=== PATIENT | female | born 1990 | race Caucasian/White ===

== ENCOUNTER 2018-04-05 07:35 | Inpatient (IN) | payer MEDICAID, SELFPAY ==
[2018-04-05 07:39] VITALS: BMI 29.7
--- NOTE | 2018-04-05 08:09 | PCM.HP.OB ---
- Problem List (1) Oligohydramnios Status: Acute Qualifiers: Fetus number: single or unspecified fetus Trimester: third trimester Qualified Code(s): O41.03X0 - Oligohydramnios, third trimester, not applicable or unspecified History Date of Admission: 04/05/18 Final GORDO: 03/31/18 Final GORDO Source: US <20 weeks Gestational age: 40 Weeks and 5 Days History of this : This is a 27 year-old, , at 40 weeks gestational age. History significant for prior heroin use and incarceration. Was on Subutex prior but has not taken for 3-4 years per pt. Has been clean since 12/2015. History also significant for tobacco use in the , anemia, situational depression (while incarcerated), and HSV. Has been taking iron supplement. States her last HSV outbreak was 6 weeks ago. Allergies No Known Allergies Allergy (Verified 12/15/16 00:37) Home Medications: Home Medications Buspirone HCl [Buspar] 10 mg PO TID 12/15/16 Fluoxetine HCl [Fluoxetine HCl] 10 mg PO BID 12/15/16 Smoking Status: Current every day smoker Alcohol: None History Past Pregnancies: Past Pregnancies Delivery Date Name GA/Weeks Outcome Route Weight Gender Labor Length Anesthesia Delivery Location Provider FOB Term 9lb4oz Term 8lb Expected Infant Delivery Method: Spontaneous Vaginal Review of Systems Constitutional: Denies: Fever HEENT: Denies: Head Aches Cardiovascular: Denies: Chest Pain Respiratory: Denies: Shortness of Breath Gastrointestinal: Denies: Abdominal Pain Gynecological: Reports: - - +Ctx's. No VB, LOF. Good FM Physical Exam General: Alert, Oriented x3 HEENT: Atraumatic Lungs: Normal air movement Abdomen: Soft, Non Tender Neurological: Neuro grossly intact Estimated gestational size: Appropriate for gestational size Presentation: Cephalic Cervix Dilation (cm): 2 Assessment/Plan All Active Problems Oligohydramnios (Acute) This is a 27 year-old, at 40 weeks gestational age. Admitted for IOL for oligo. She had an US 1 day ago showing ANTHONY 2cm. NST 1 day ago was reactive and reassuring. - Will plan for osorio and pitocin induction - GBS negative - Epidural for pain control - HSV: Has been taking Acyclovir. Pt denies prodromal symptoms. Will assess for lesions before placing osorio - Hx of heroin use: Has not used since 12/2015. Urine tox in neg. Will get urine tox on admission today
[2018-04-05] MEDS: Lactated Ringers 1,000 ML 50 ML IV ×2 (08:33→11:15)
[2018-04-05 08:46] LABS: Hematocrit 33.5 % (37-47); Mean Corp Hgb Conc 32.8 g/gl (32-36); Mean Corpuscular Hgb 28.6 pg (27.0-32.0); Mean Platelet Vol. 11.3 fl (6.2-12.0); Platelet Count 182 K/mm3 (150-450); RBC Distribution Width CV 20.3 % (11.6-14.6); RBC Distribution Width SD 63.5 fl (35.1-43.9); Red Blood Count 3.85 M/mm3 (4.2-5.4); White Blood Count 9.1 K/mm3 (4.4-11.0)
[2018-04-05] MEDS: Oxytocin 30 units/NS 500 ml 30 UNITS/500 ML IV.SOLN IV (08:48)
[2018-04-05 08:49] LABS: Scan Indicated on CBC? Y/N YES- FLAGS NOTED
[2018-04-05] MEDS: 0.9% Normal Saline 100 ML IV.SOLN. INTRA-UTER (09:01)
[2018-04-05] MEDS: 0.9% Normal Saline 250 ML IV.SOLN. 100 ML IV (09:01)
--- NOTE | 2018-04-05 09:05 | PCM.PN.BLA ---
Progress Note No external HSV lesions noted. Intracervical osorio placed in usual fashion and filled with 40 cc. Cvx 2/50/-2, vertex. Pit started and to hold at [address] is in [address].
[2018-04-05 09:06] LABS: Differential Comment SCANNED
[2018-04-05 09:10] LABS: Amphetamine Urine VISTA NEGATIVE (<1000 ng/mL); Barbiturate Urine VISTA NEGATIVE (< 200 ng/mL); Benzodiazepine Urine VISTA NEGATIVE (< 200 ng/mL); Cocaine Urine VISTA NEGATIVE (< 300 ng/mL); Ecstacy Urine VISTA NEGATIVE (< 500 ng/mL); Methadone Urine VISTA NEGATIVE (< 300 ng/mL); PCP Urine VISTA NEGATIVE (< 25 ng/mL); THC Urine VISTA NEGATIVE (< 50 ng/mL); Vista UDS pH Range 6
[2018-04-05] MEDS: fentaNYL-bupivacaine (epidural) 100 ML BAG EPIDURAL (11:07)
--- NOTE | 2018-04-05 13:23 | PCM.PN.BLA ---
Progress Note pt resting comfortable with epidural in place. VE- 5-6/70/-2 AROM performed clear fluid. Continue pitocin at 6mu. anticipate
[2018-04-05] MEDS: Oxytocin 30 units/NS 500 ml 30 UNITS/500 ML IV.SOLN 334 UNITS IV (14:14)
--- NOTE | 2018-04-05 14:26 | PCM.OB.VAG ---
Vaginal Delivery Maternal Presentation: Medically Indicated Induction - oligohydramnios Method of Induction: Pitocin, Garcia Bulb, Amniotomy Medical Reason for Induction: - - oligohydramnios Amniotic Membrane Rupture Type: Artificial Amniotic Fluid Description: Clear Final GORDO: 03/31/18 Gestational age: 40 Weeks and 5 Days Date of Procedure: 04/05/18 Pre-Operative Diagnosis: Term gestation, Oligohydramnios Post-Operative Diagnosis: same, live male Surgery/ Procedure Performed: Spontaneous Vaginal Delivery Type of Anesthesia: Epidural Description of Procedure: of live male infant born without complication. Delayed cord clamping performed. Presentation: Vertex Placental Delivery Description: Spontaneous Placenta Disposition: [facility] Cord Vessel Description: 3 Vessels Nuchal Cord Compression: Without compression Cord Entanglement: None Drain: Garcia to straight drain Estimated Blood Loss: 200 Infant A gender: Male (1 minute): 8 (5 minute): 9 Episiotomy Description: None Laceration: None Medications given after delivery: IV Pitocin Complications: None
[2018-04-05] MEDS: Oxytocin 30 units/NS 500 ml 30 UNITS/500 ML IV.SOLN 167 UNITS IV (15:42)
[2018-04-05] MEDS: Ibuprofen 600 MG Tablet PO (16:30)
[2018-04-05] MEDS: Acetaminophen 500 MG Tablet 1000 MG PO (18:14)
[2018-04-05 19:53] VITALS: BP 127/76; PULSE 57; RESP 16; TEMP 37.1
[2018-04-06] VITALS: BP 114/61; PULSE 66; RESP 18; TEMP 36.7
[2018-04-06 04:00] VITALS: BP 151/95; PULSE 56; RESP 16; TEMP 36.6
[2018-04-06] MEDS: Ibuprofen 600 MG Tablet PO ×3 (04:24→22:39)
[2018-04-06 08:40] VITALS: BP 125/76; PULSE 58; RESP 16; TEMP 36.4
--- NOTE | 2018-04-06 08:41 | PCM.PN.OB ---
Patient Problems: Active and Suspected Problems Oligohydramnios (Acute) Subjective: Patient sitting up in bed, bonding with baby at this time. Patient is feeding formula and denies any issues or complaints. Patient reports some uncomfortable cramping and back ache. Taking Motrin as directed and it's helping. Denies dizziness, scotoma or APONTE. Denies issues with urination or ambulation. Objective: Nipples intact Abdomen NT x 4 quadrants, FF midline @ umbilicus Small rubra lochia +2/4 reflexes in LE, no edema noted Negative calf tenderness BL - Physical Exam General: Alert, Oriented x3, Cooperative HEENT: Atraumatic, Normocephalic Lungs: Normal air movement Cardiovascular: Regular rate, No murmurs Abdomen: Soft, Non Tender Extremities: No edema, Capillary Refill Less than 3 Seconds Skin: No rashes, No breakdown Musculoskeletal: No Tenderness to Palpation of Joints or Extremities Neurological: Cranial nerves II-XII grossly intact Psych/Mental Status: Normal Affect, Appropriate Vital Signs Temp Pulse Resp BP 98 F 56 L 16 151/95 H 04/06/18 04:00 04/06/18 04:00 04/06/18 04:00 04/06/18 04:00 Oxygen Delivery Method Room Air Weight: 189 lb 9.561 oz Body Mass Index (BMI) 29.7 Intake and Output for Last 24 Hours 04/04/18 04/05/18 04/06/18 23:59 23:59 23:59 Intake Total 2115 / 2115 Output Total 1300 / 1300 Balance 815 / 815 Laboratory Tests Past 24 Hrs 04/05/18 04/05/18 04/05/18 08:25 08:33 08:33 WBC 9.1 RBC 3.85 L Hgb 11.0 L Hct 33.5 L MCV 87.0 MCH 28.6 MCHC 32.8 RDW 20.3 H RDW Differential 63.5 H Plt Count 182 MPV 11.3 Differential Comment SCANNED Urine Opiates Screen NEGATIVE Urine Methadone Screen NEGATIVE Ur Barbiturates Screen NEGATIVE Ur Phencyclidine Scrn NEGATIVE Ur Amphetamines Screen NEGATIVE U Methamphetamin-MDMA NEGATIVE U Benzodiazepines Scrn NEGATIVE Urine Cocaine Screen NEGATIVE U Cannabinoids Screen NEGATIVE Ur Drug Screen Comment Blood Type O POSITIVE Antibody Screen NEGATIVE Medical Necessity - Tobacco Use Smoking Status: Light Smoker (<10/day) Assessment/Plan All Active Problems Oligohydramnios (Acute) A: 27 y/o G3 now P3 s/p following IOL for oligohydramnios, PPD # 1, Normal PP Course P: 1) Social Service Consult for hx of drug use and also lack of support system - patient reported today she is living alone at this time. FOB is currently incarcerated at this time. 2) Continue PP orders 3) Anticipate discharge to home tomorrow Kristi LOUISE
[2018-04-06] MEDS: Acetaminophen 500 MG Tablet 1000 MG PO (08:47)
--- NOTE | 2018-04-06 11:31 | CASEMGMT ---
Social Work Note Referral Date: 04/06 Date of Assessment: 04/06 Reason for Consult: hx of heroin, hx of depression/anxiety, limited supports Informant: VENESSA Peralta Personal Status: FIFI reports to live alone with her 6 y/o son, Ben Silverio. His father is not involved. She also has a 3 y/o son that she does not have custody of, and who lives with his paternal grandparents. She does have visitation with him once/week, but has not been able to the last few weeks of her . Father of this , Rafael Aggarwal, is currently incarcerated and she anticipates that he will get out in December of 2018. She reports to be financially stable and to have good support through Rafael's family. Infant named Rafael Naqvi. MOB reports to have necessary supplies for home going including car seat (present in room upon assessment), crib, diapers, bottles, clothes. Pt does not have a pump and encourage her to request this before she is discharged as the biomedical equipment specialist will assist her with obtaining one. MOB is linked with [facility] and [employer] ([employer], [employer]), and goes to for counseling. MOB recently got her license and states she will be able to drive her boyfriend's car once she has the plates changed, is hoping to have this done in the next two weeks. Has supports that can provide transportation if needed. No further home going needs identified. Substance Use: Pt reports smoking tobacco currently about 1/2 ppd. Reports a hx of heroin use, but has not used since 12/2015. No positive urine tox screen throughout or upon admission. Mental Health Hx: Diagnoses: Depression and Anxiety SI or HI? No Medications: No Counseling: [employer]; MARTINEZ Luciano Last visit about one month ago, plans to contact once settled. Educated to PPD and symptoms. Reviewed packet with pt and encouraged her to check in with her PCP, OBGYN and counselor if symptoms persist. Understanding expressed. Resources: WIC: Food and Formula assistance JFS: Medicaid ([employer]) and Food Assistance Counseling: Intervention: Completed assessment to identify needs or concerns. None identified. No positive tox screen, and MOB is appropriate with . Educated to PPD as there is a hx of depression/anxiety and MOB is more susceptible to experiencing PPD. Discussed clinicians to see if symptoms persist. Contact [facility] to confirm no open case. Per October they closed MOB's last case in 05/2017. Reviewed information with this , and October confirms there is nothing to report. Plan: Home at discharge. FOB Aunt will transport home, car seat in MOB's room. Missy Abbott, COPY CHASER, PLANT ETIOLOGIST
[2018-04-06 12:00] VITALS: BP 134/82; PULSE 60; RESP 18; TEMP 36.5
[2018-04-06 13:00] VITALS: BP 100/59; PULSE 83; RESP 16; TEMP 36.6
[2018-04-06 20:08] VITALS: BP 121/74; PULSE 64; RESP 16; TEMP 36.7
[2018-04-07 02:08] VITALS: BP 114/81; PULSE 64; RESP 16; TEMP 36.5
[2018-04-07] MEDS: Acetaminophen 500 MG Tablet 1000 MG PO (05:45)
[2018-04-07 08:00] VITALS: BP 124/78; PULSE 57; RESP 14; TEMP 37.1
--- NOTE | 2018-04-07 08:47 | PCM.PN.OB ---
Patient Problems: Active and Suspected Problems Oligohydramnios (Acute) Subjective: Patient reports doing well and feels ready to go home today. Pain controlled. Ambulating and voiding without difficulty. Normal lochia. Alex reg diet. Denies fevers, chills, CP, SOB, n/v, leg pain. - Physical Exam General: Alert, Oriented x3 HEENT: Atraumatic Lungs: Normal air movement Abdomen: Soft, Non Tender, - - fundus firm and U-1 Extremities: No Calf Tenderness Skin: No rashes Neurological: Neuro grossly intact Psych/Mental Status: Normal Affect Vital Signs Temp Pulse Resp BP 97.7 F L 64 16 114/81 H 04/07/18 02:08 04/07/18 02:08 04/07/18 02:08 04/07/18 02:08 Oxygen Delivery Method Room Air Weight: 189 lb 9.561 oz Body Mass Index (BMI) 29.7 Intake and Output for Last 24 Hours 04/05/18 04/06/18 04/07/18 23:59 23:59 23:59 Intake Total 2115 / 2115 Output Total 1300 / 1300 Balance 815 / 815 Medical Necessity - Tobacco Use Smoking Status: Light Smoker (<10/day) Assessment/Plan All Active Problems Oligohydramnios (Acute) day #2 - Doing well and feels ready to go home - Reviewed discharge instructions with patient including return precautions and follow up
--- NOTE | 2018-04-07 08:50 | PCM.DCVAG ---
Discharge Diet: No Restrictions Discharge Activity: Return to Normal Activity, May Shower May resume sexual activity in: 6 weeks Weight Bearing Status: Weight bearing as tolerated Call your doctor if you observe: Fever of 101 or Higher, Inability to urinate, Inability to have a bowel movement, Using more than one pad per hour, Shortness of breath, Chest pain, Calf discomfort, Uncontrolled pain Additional Instructions: If you experience any of the following, contact your healthcare provider. Bleeding that soaks a pad every hour for 2 hours Fever 100.4 or higher Unrelieved incision or abdominal pain Swelling, redness, discharge or bleeding from your incision or episiotomy site Your incision begins to separate Problems urinating (including inability to urinate or burning while urinating). Visual changes Severe headache Flu-like symptoms Pain or redness in one of both of your breasts Pain, warmth, tenderness or swelling in your legs, especially the calf area Frequent nausea and vomiting Symptoms of depression or anxiety If you experience any of the following, call 911 or go to the nearest Emergency Room. Chest pain Problems breathing Seizure activity Partial or complete paralysis of a body part, slurred speech, weakness or drooping of the face, or a sudden inability to walk or hold your balance Allergies/Adverse Reactions: Allergies No Known Allergies Allergy (Verified 12/15/16 00:37) Medications to take at Discharge Acyclovir mg PO TID 04/05/18 Ferrous Sulfate [Slow Fe] 142 mg PO BID 04/05/18 Vits [Prenatabs FA] 1 tablet PO DAILY 04/05/18 When: Call to schedule 2 week and 6 week appointments Primary Care Physician: Care Physician,No Primary [Primary Care Provider] - Test Results: Test results from this visit will be discussed in further detail at your follow-up appointment, if applicable.
--- NOTE | 2018-04-07 11:45 | NURSING ---
1125: infant placed in carseat per mother. Pt denies need for further maternal or infant care teaching.
== END 2018-04-07 11:25 | disposition home or self-care (01) | DRG 372 ==
PROVIDERS: Admitting Provider Obstetrics & Gynecology; Visit Provider Obstetrics & Gynecology
DX: O41.03X0 Oligohydramnios, third trimester, not applicable or unspecified (principal); O98.52 Other viral diseases complicating childbirth; O48.0 Post-term pregnancy; Z3A.40 40 weeks gestation of pregnancy; Z37.0 Single live birth; B00.9 Herpesviral infection, unspecified; F17.200 Nicotine dependence, unspecified, uncomplicated; O99.334 Smoking (tobacco) complicating childbirth
CPT/HCPCS: 59025; 59050; 80307; 85027; 86850; 86900; 99218; J7050; J7120; G0378

== ENCOUNTER 2020-09-10 16:25 | Inpatient (IN) | payer MEDICAID, SELFPAY ==
[2020-09-10] VITALS (13 sets, daily range): BP systolic 108–137; BP diastolic 66–81; PULSE 51–67; RESP 16–22; TEMP 36.2–36.4; O2SAT 98–100; BMI 28.8
--- NOTE | 2020-09-10 16:29 | NURSING ---
1615- pt CAME IN TO ER RAMP C/O WATER BREAKING AND FEELING OF PRESSURE. PT TO CART AND TO ROOM WITH PT BABY . MONTY DU CALLED AND OB ON THE WAY HERE WITH ARVIN. DR. SIMS CALLED. PT TO ROOM WITH ER STAFF AND CPS ALSO IN. DR. TORO ABLE TO DELIVER AT BEDSIDE AT 1619. BABY SUCTIONED WITH BULB SYRINGE AND INITIAL 9/9 WITH CORD AROUND NECK X1 LOOSE WHICH WAS REDUCED ON PERINIUM BY RANJANA ELAM RN. BABY CRYING AND PLACED SKIN TO SKIN. FATHER OF BABY IN And cord clamped. pt reports that was supposed to be induced tonight at [place]. pt transferred to down to [facility] via bed. no vitals or iv line obtained.
[2020-09-10] MEDS: Oxytocin 10 UNITS/ML Vial IM (16:31)
--- NOTE | 2020-09-10 16:37 | NURSING ---
unable to do admit dispo d/t no vitals obtained. unable to chart
--- NOTE | 2020-09-10 16:55 | PCM.OPRPT ---
Problem List (1) Active labor Status: Acute Vaginal Delivery Maternal Presentation: Active Labor 30yo at 39 weeks who presented to the ER in active labor. Baby delivered in the ER parking lot. Amniotic Membrane Rupture Type: Spontaneous Date of Procedure: 09/10/20 Pre-Operative Diagnosis: Precipitous delivery Post-Operative Diagnosis: same Surgery/ Procedure Performed: - - Delivery of placenta Type of Anesthesia: None Description of Procedure: Patient presented to the emergency department on active labor. She had already delivered precipitously in the emergency department. When I arrived in the room, baby is resting on mother's chest and the placenta remained in place. The placenta delivered spontaneously and appeared intact. Fundal massage was performed and uterine tone was noted to be adequate. The vagina was then inspected for lacerations and no laceration was noted. Placenta Disposition: [facility] Cord Vessel Description: 3 Vessels Estimated Blood Loss: 100 ml Infant A gender: Female Episiotomy Description: None Laceration: None Medications given after delivery: - - IM Pitocin Complications: None Multi Select Codes - Urinary/Genital Urinary/Genital CPT Codes: 82054 Delivery of placenta
--- NOTE | 2020-09-10 17:18 | NURSING ---
pt delivered in ER room no delivery table.
--- NOTE | 2020-09-10 17:19 | HP.PCM_ITS ---
- Problem List (1) Active labor Status: Acute History Date of Admission: 04/05/18 Final GORDO: 09/11/20 Final GORDO Source: US <20 weeks Gestational age: 39 Weeks and 6 Days History of this : This is a 30 year-old, G 4, P 3, at 39 weeks gestational age who presented in active labor and delivered precipitously. Allergies No Known Allergies Allergy (Verified 12/15/16 00:37) Home Medications: Home Medications Acyclovir 1 tab PO BID 04/05/18 Ferrous Sulfate [Slow Fe] 142 mg PO DAILY 04/05/18 Vits [Prenatabs FA] 1 tablet PO DAILY 04/05/18 Buprenorphine HCl/Naloxone HCl [Suboxone 12 mg-3 mg Sl Film] 20 mg SL BID 09/10/20 Smoking Status: Light Smoker (<10/day) History Past Pregnancies: Past Pregnancies Hx Term x3 Labs: Awaiting prenatals Review of Systems Constitutional: Denies: Chills HEENT: Denies: Head Aches Cardiovascular: Denies: Chest Pain, Palpitations Respiratory: Denies: Cough, Shortness of breath at rest, Sputum production Gastrointestinal: Denies: Abdominal Pain, Nausea, Vomiting Genitourinary: Denies: Dysuria Skin: Denies: Rash, Wounds Neurological: Denies: Numbness, Tingling, Focal weakness Psychiatric: Denies: Anxiety, Depression Hematologic/ Lymphatic: Denies: Easy Bruising, Easy Bleeding Physical Exam General: Alert, Oriented x3, Cooperative, No apparent distress, Well developed, Well nourished HEENT: Atraumatic, PERRLA, EOMI, Normocephalic Cardiovascular: Regular rate Lungs: Normal air movement Abdomen: Soft, Non Tender, Non-Distended, Gravid Extremities:: No edema Neurological: Cranial nerves II-XII grossly intact, Neuro grossly intact ACCOUNTS EXECUTIVE: Normal external genitalia Presentation: Cephalic Cervix Dilation (cm): 10 Assessment/Plan All Active Problems Oligohydramnios (Acute) Active labor (Acute) This is a 30 year-old, G 4, P 3, at 39 weeks gestational age. Precipitous delivery -Patient presented in active labor. Patient delivered precipitously in ER parking lot. Receives care in [place]-we will attempt to obtain records Substance abuse -Patient on Subutex 8 mg in the a.m. and 12 mg at noon -Prescribed by Dr. Abel in [place] -Does report relapsing earlier this week -Has taken Subutex since relapsing without experiencing withdrawal symptoms
--- NOTE | 2020-09-10 17:27 | ED.VIS.GEN ---
History of Present Illness Chief Complaint: Female C/O Informant: Patient, Family Narrative: 30-year-old presents with concern for spontaneous delivery. Called emergently to ambulance bay with the patient who is in her private vehicle and actively . Patient was due to be induced [facility] at [facility]. Began having intermittent cramping today. Past Medical History - Allergies and Home Meds Allergies/Adverse Reactions: Allergies No Known Allergies Allergy (Verified 12/15/16 00:37) Prior records reviewed: Yes Past Medical History: None Surgical History: noncontributory Lives: Spouse/ Significant Other Smoking Status: Light Smoker (<10/day) Alcohol: None Drugs: None Review of Systems General: Denies: Chills, Fever, Sweats Eyes: Denies: Visual changes - bilaterally, Diplopia ENT: Denies: Rhinorrhea, Sore throat Cardiovascular: Denies: Chest pain, Palpitations Respiratory: Denies: Dyspnea, Cough, Dyspnea on exertion Gastrointestinal: Reports: Abdominal pain. Denies: Nausea, Vomiting, Diarrhea, Melena, Hematochezia Genitourinary: Denies: Dysuria, Hematuria, Frequency Musculoskeletal: Denies: Back pain, Extremity Pain Skin: Denies: Rash, Wounds Neurological: Denies: Headache, Weakness, Numbness Physical Exam Inital Vital Signs reviewed: Yes General: Well nourished, Well developed, No Acute Distress Head: Normocephalic, Atraumatic Eyes: Perrl, EOMI ENT: Moist mucous membranes, No rhinorrhea Neck: Supple, Nontender Cardiovascular: Regular rate, Regular rhythm, No murmurs Respiratory: No distress, CTA bilaterally, Chest nontender Abdomen: Soft, Nontender, Nondistended, Normal bowel sounds : - - Presenting head at the vaginal introitus. Loss of fluid while getting into bed. Back: Nontender, Normal Inspection Extremities: Nontender, No edema Skin: Normal color, No rash Neurological: Alert, Oriented x3, Cranial nerves II-XII grossly intact, Normal Strength, Normal Sensation Psychological: Normal affect, Normal Mood Diagnostic/Tx/Re-eval - Medical Decision Making 30 at 39 weeks female presents having spontaneous delivery. Was taken to an ED room where shortly after she had a precipitous delivery vaginally without difficulty. There was a nuchal cord which was reduced easily. 9 upon presentation. Baby vigorous. Bulb suction at the bedside. Baby warmed. ASSISTANT STATISTICIAN presented shortly after who delivered placenta. Patient will be given intramuscular Pitocin. No significant hemorrhage. Patient will be transferred to obstetrics. Stable at time of transfer. Impression: 1. Spontaneous vaginal delivery Procedures Procedure(s): vaginal delivery ED Disposition - Plan for ED Patient: Disposition: Acute Care Hospital [facility]
--- NOTE | 2020-09-10 17:29 | DCINST_ITS ---
Discharge Diet: No Restrictions Discharge Activity: Return to Normal Activity, May not drive while taking narcotic pain medications., May Shower May resume sexual activity in: 4-6 weeks Additional Activity Instructions:: Nothing in the vagina for 4-6 weeks. You may return to work/school in 6 weeks. Call your doctor if your incision/area has: Continuous Slow Oozing, Sudden Increased Bleeding, Increased Pain/ Swelling, Increased Redness, Foul Smelling Discharge Additional Instructions: If you experience any of the following, contact your healthcare provider. * Bleeding that soaks a pad every hour for 2 hours * Fever 100.4 or higher * Unrelieved incision or abdominal pain * Swelling, redness, discharge or bleeding from your incision or episiotomy site * Your incision begins to separate * Problems urinating (including inability to urinate or burning while urinating). * Visual changes * Severe headache * Flu-like symptoms * Pain or redness in one of both of your breasts * Pain, warmth, tenderness or swelling in your legs, especially the calf area * Frequent nausea and vomiting * Symptoms of depression or anxiety If you experience any of the following, call 911 or go to the nearest Emergency Room. * Chest pain * Problems breathing * Seizure activity * Partial or complete paralysis of a body part, slurred speech, weakness or drooping of the face, or a sudden inability to walk or hold your balance Allergies/Adverse Reactions: Allergies No Known Allergies Allergy (Verified 12/15/16 00:37) Medications to take at Discharge Acyclovir 1 tab PO BID 04/05/18 Ferrous Sulfate [Slow Fe] 142 mg PO DAILY 04/05/18 Vits [Prenatabs FA] 1 tablet PO DAILY 04/05/18 Buprenorphine HCl/Naloxone HCl [Suboxone 12 mg-3 mg Sl Film] 20 mg SL BID 09/10/20 When: Call to make an appointment with your doctor in 6 weeks. If you had elevated Blood Pressure or 4th degree laceration you will need to be seen in 2 weeks. Primary Care Physician: Care Physician,No Primary [Primary Care Provider] - Test Results: Test results from this visit will be discussed in further detail at your follow- up appointment, if applicable.
--- NOTE | 2020-09-10 18:10 | ED.RN ---
VITAL SIGNS PER OB NURSE. VITALS WERE NOT OBTAINED IN THE ER
[2020-09-10 18:42] LABS: Absolute Lymphocyte Count 1.05 X10^3/uL (0.83-4.51); Absolute Neutrophil Count 8.1 X10^3/uL (2.0-7.7); Basophil# 0.04 X10^3/uL; Basophil% 0.4 % (0-1); Eosinophil# 0.03 X10^3/uL; Eosinophils% 0.3 % (0-5); Hematocrit 34.7 % (37-47); Hemoglobin 11.3 g/dL (12.0-15.0); Lymphocyte # 1.05 X10^3/ul (4.0); Lymphocyte % 10.6 % (19-41); Mean Corp Hgb Conc 32.6 g/dL (32-36); Mean Corpuscular Hgb 29.8 pg (27.0-32.0); Mean Corpuscular Volume 91.6 fL (81-99); Mean Platelet Vol. 10.2 fl (6.2-12.0); Monocyte# 0.64 X10^3/uL; Monocyte% 6.4 % (0-10); NRBC Flagged by Analyzer 0 % (0-5); Neutrophil % 81.4 % (47-70); Platelet Count 223 K/mm3 (150-450); RBC Distribution Width CV 13.5 % (11.6-14.6); RBC Distribution Width SD 44.2 fl (35.1-43.9); Red Blood Count 3.79 M/mm3 (4.2-5.4)
[2020-09-10 19:05] LABS: Amphetamine Urine VISTA NEGATIVE (<1000 ng/mL); Barbiturate Urine VISTA NEGATIVE (< 200 ng/mL); Benzodiazepine Urine VISTA NEGATIVE (< 200 ng/mL); Cocaine Urine VISTA NEGATIVE (< 300 ng/mL); Ecstacy Urine VISTA NEGATIVE (< 500 ng/mL); Methadone Urine VISTA NEGATIVE (< 300 ng/mL); PCP Urine VISTA NEGATIVE (< 25 ng/mL); THC Urine VISTA NEGATIVE (< 50 ng/mL); Vista UDS pH Range 6
--- NOTE | 2020-09-10 19:49 | NURSING ---
called to ER by charge nurse for pt arrival and pushing on ramp to ER. to ER with stabilet and nursery nurse with another L&D nurse. PILY called when en route . upon arrival to ER head and ROM ruptured upon arrival. this nurse assisted ER Dr Perez with vaginal delivery on cart of live female with CAN x1 loose, delayed cord clamping done, pt placed skin to skin with mother. 1615 srom 1619 [address] of [address] per [address] Ryan 1631 10mg IM pitocin L arm per margaret. 9/9. cord blood obtained. pt transfered to from ER for admission.
[2020-09-10] MEDS: Naproxen 250 MG Tablet 500 MG PO (23:56)
[2020-09-11 03:23] VITALS: BP 117/69; PULSE 53; RESP 18; TEMP 36.5
[2020-09-11 07:57] VITALS: BP 128/66; PULSE 56; RESP 16; TEMP 36.7; O2SAT 98
[2020-09-11] MEDS: Naproxen 250 MG Tablet 500 MG PO ×2 (08:06→20:32)
--- NOTE | 2020-09-11 08:08 | PN.OBGYN_ITS ---
Patient Problems: Active and Suspected Problems Active labor (Acute) Subjective: Patient doing well without complaints. Tolerating PO. Ambulating and voiding without difficulty. Bottle feeding well. Denies chest pain, shortness of breath, calf pain/swelling, fevers, chills, lightheadedness. - Physical Exam Vitals/I&O's: Vital Signs Temp Pulse Resp BP Pulse Ox 98.1 F 56 L 16 128/66 H 98 09/11/20 07:57 09/11/20 07:57 09/11/20 07:57 09/11/20 07:57 09/11/20 07:57 Oxygen Delivery Method Room Air Weight: 184 lb Body Mass Index (BMI) 28.8 Intake and Output for Last 24 Hours 09/09/20 09/10/20 09/11/20 23:59 23:59 23:59 Output Total 550 / 550 Balance -550 / -550 General: Alert, Oriented x3, Cooperative, No apparent distress, Well developed, Well nourished HEENT: Atraumatic, PERRLA, EOMI, Normocephalic Neck: Supple, No JVD Lungs: Normal air movement Cardiovascular: Regular rate Abdomen: Soft, Non Tender, Non-Distended, - - fundus firm Extremities: No edema, No Calf Tenderness Neurological: Cranial nerves II-XII grossly intact, Neuro grossly intact Psych/Mental Status: Normal Affect, Appropriate Microbiology Past 72 Hours 09/10/20 17:50 Mucosa - Nose SARS-CoV-2 Antigen (Rapid) - Final Laboratory Results 09/10/20 17:50: WBC 10.0, RBC 3.79 L, Hgb 11.3 L, Hct 34.7 L, MCV 91.6, MCH 29.8, MCHC 32.6, RDW Std Deviation 44.2 H, RDW Coeff of Kierra 13.5, Plt Count 223, MPV 10.2, Immature Gran % (Auto) 0.900, Neut % (Auto) 81.4 H, Lymph % (Auto) 10.6 L, [place] % (Auto) 6.4, Eos % (Auto) 0.3, Baso % (Auto) 0.4, Absolute Neuts (auto) 8.1 H, Absolute Lymphs (auto) 1.05, Nucleated RBC % 0 09/10/20 17:50: Blood Type O POSITIVE, Antibody Screen NEGATIVE 09/10/20 18:18: Urine Opiates Screen POSITIVE H, Urine Methadone Screen NEGATIVE, Ur Barbiturates Screen NEGATIVE, Ur Phencyclidine Scrn NEGATIVE, Ur Amphetamines Screen NEGATIVE, U Methamphetamin-MDMA NEGATIVE, U Benzodiazepines Scrn NEGATIVE, Urine Cocaine Screen NEGATIVE, U Cannabinoids Screen NEGATIVE, Ur Drug Screen Comment Current Medications Acetaminophen (Acetaminophen 500 Mg Tablet) 1,000 mg PO Q8H PRN PRN PRN Reason: Pain Score 1-3 Bisacodyl (Bisacodyl 10 Mg Suppository) 10 mg RECTAL UD PRN PRN Reason: If no BM Buprenorphine HCl (Buprenorphine Hcl 8 Mg Tab.Subl) 20 mg SL DAILY SWATI Dibucaine (Dibucaine 30 Gm Tube) 1 applic TOPICAL TID PRN PRN; Protocol PRN Reason: Discomfort Etonogestrel (Etonogestrel 68 Mg Implant) 68 mg SQ X1 ONE Stop: 09/11/20 10:01 Hydrocortisone (Hydrocortisone 2.5% Crm) 1 applic TOPICAL TID PRN PRN; Protocol PRN Reason: Discomfort Methylergonovine Maleate (Methylergonovine 0.2 Mg/Ml Ampul) 0.2 mg IM X1 PRN PRN Reason: Excess bleeding/uterine atony Naproxen (Naproxen 250 Mg Tablet) 500 mg PO Q8H PRN PRN PRN Reason: Pain Score 1-3 Last Admin: 09/11/20 08:06 Dose: 500 mg Documented by: Ondansetron HCl (Ondansetron 4 Mg/2 Ml Vial) 4 mg IV Q4H PRN PRN PRN Reason: Nausea Senna/Docusate Sodium (Senna/Docusate Sodium 1 Tablet) 1 - 2 tablet PO DAILY PRN PRN PRN Reason: Constipation Simethicone (Simethicone 80 Mg Tablet) 80 mg PO PCHS PRN PRN Reason: Indigestion/Stomach pain Sodium Chloride (0.9% Saline Lock 10 Ml Syringe) 5 - 15 ml IV UD PRN PRN Reason: SALINE FLUSH Medical Necessity - Tobacco Use Smoking Status: Current every day smoker Assessment/Plan All Active Problems Oligohydramnios (Acute) Active labor (Acute) s/p PPD # 1 1. routine post delivery care 2. bottle feeding- support given 3. rh positive 4. rubella immune
[2020-09-11] MEDS: Acetaminophen 500 MG Tablet 1000 MG PO ×2 (10:22→21:58)
[2020-09-11] MEDS: BUPRENORPHINE HCL 8 MG TAB.SUBL SL (11:10)
--- NOTE | 2020-09-11 12:10 | CASEMGMT ---
Social Work Assessment Labor and Delivery Unit Patient Address: [address] [place] [address] (alternate address: [address] [place] [address]) Phone number: [phone] Date of Referral: 09/10/2020; 09/11/2020 Time of Referral: 193; [id number] Referred By: Dr. Ryan Date of Intervention: 09/11/2020 Time of Intervention: 1130 - 1210 Reason for Referral: Maternal history of substance use in and mental health. History obtained from: Medical records and mother of baby (MOB) Carol Frankel; father of baby (FOB) Rafael Solorio present for part of conversation. Household composition: Initially the MOB reported to basically lives with the FOB and 2 of MOB's older children. Later on during assessment the MOB reported to have her own apartment on [address], while FOB maintains the [address] [place] [address] address with the children. Patient's parent/guardian status: FIFI is a 30-year-old single female involved with the FOB (age 25) for the last 4-1/2 years. During private conversation with the MOB, the MOB denies any form of abuse, control, intimidation in this relationship. MOB and FOB now share 2 children together. FIFI has a total of 4 children. Minor children include: Ben Silverio, born 03/08/2012, currently residing with the current FOB Rafael Solorio. Rafael is now the biological father to Ben, but per MOB Rafael has custody of Mason. Hannah, born 04/24/2015, in the custody of the paternal grandparents. Medical records indicate that FIFI was incarcerated at the time of this and delivered this baby at [facility]. MOB reports the child's grandparents have not been allowing regular visits recently. Rafael Duvallhenry Solorio Jr., born 04/05/2018, biological father is Rafael Solorio. MOB reports Rafael has custody of this child. baby girl, Lauren Solorio, born 09/10/2020. Medical History: FIFI is 4, para 3 now 4 after delivering Lauren. MOB reports she started care in December 2019. care was received in [place] due to FIFI going through [facility]'s Medication Assisted Treatment Centering Program. FIFI was scheduled to be induced at [facility] for delivery, but presented to [facility] in active labor, delivering the baby precipitously in the emergency department. Chart indicates baby was actually at the entrance into the emergency room. Infant delivered at 39 weeks gestation weighing 6 pounds 12 ounces. Apgars 9 and 9 at 1 and 5 minutes of life. Concern for intrauterine exposure to substances. Educational Status: MOB reports to have her GED. Reports to be able to read, write, and understand what is read. Financial Status: MOB reports she has been working at [employer] for a couple of years now but left recently due to . MOB is uncertain whether she will return back to this employment once maternity leave is over. FOB reports to work at [employer] on first shift. The parents deny any financial concerns or ability to pay monthly bills. Supplies: MOB reports to have a crib, pack and play, bassinet, car seat, clothing, diapers, wipes, and bottles for this baby. MOB reports plan to provide a combination of breast and formula to the baby. Childcare/Caregiver(s): MOB is hoping to provide care to the baby. Reports that has been discussed with children services, and if needed the baby will go and stay with the FOB. Transportation: MOB does not drive, and relies on [facility] for transportation. Programs/Agencies Involved: MOB reports to have food and medical through job and family services. MOB reports to see Dr. Colten Durham's MAT mother's centering program; a counselor Rachel runs the weekly centering group at [facility]. Reports to see counselor Kate Hickman, and a recovery unit operator Shabnam, at [facility]. Reports would like to get involved with [facility] and reports will think about a referral to [facility]. Children Services/Legal Issues: MOB reports to be involved with family dependency court. Active case with [facility] children services. Ongoing worker is Patricia Schuler. Behavioral Health Issues: Mental Health History: It is reported that MOB has a history of depression, which was situational and occurred during incarceration. During assessment this mortgage loan underwriter addressed any history of depression or anxiety, which MOB endorsed yes, a little after last child was born. After giving this response, MOB looked at FOB and then stated okay, a lot. MOB denies any history of suicidal ideation, planning, attempts, or intent. Provided MOB with an [place] Depression Screen, see attached link. Score 15 of 30, falling into range of MOB having a likely depressive episode. MOB reported never to the question pertaining thoughts of harm to self. Substance Use History: MOB reports went to inpatient treatment at [facility] in [place] in the summer for 90 days, for treatment related to opiate use issues. Was reportedly started on Subutex in January 2020. Chart indicates increase of Subutex to 16mg daily in March, and to 20 mg in May 2020. MOB reports relapse on heroin in July 2020. Reports use of heroin ingestion by snorting, denies IV drug use. MOB only reported that use was intermittently. It is reported that MOB's most recent use of heroin was the day prior to delivery, on 09.09.20. It is reported that MOB has continued to use Subutex since relapse in July. This mortgage loan underwriter noted documentation in care records of a positive drug screen for amphetamines and marijuana in June 2020. Addressed with MOB and the MOB reported use was unknowing and from a vape pen. When asked about other substances, such as fentanyl use, the MOB endorsed having a recent drug screen positive for fentanyl through children services. MOB stated this was within the last month, but not more forthcoming. MOB denies use of alcohol, cocaine, ecstasy, or other narcotic type pills during this . MOB does smoke tobacco. Family History: MOB's family history not discussed. FOJonas reports history of opiate addiction and reports a sober date of 11.04.2014. Drug Screens: Maternal drug screen positive on 09.10.2020 for opiates (Subutex not tested in this panel, nor for fentanyl). Per record, there was a positive urine drug screen on 07.14.2020 for amphetamines and marijuana. Baby's urine drug screen on 09.10.2020 positive for opiates and buprenorphine. Meconium drug screen is pending. MIKAL scoring: Scores ranging from 0-5 so far. Family/Social Stressors: Multiple social issues including maternal substance use issues with active use in , maternal mental health issues, active involvement with [facility] and family dependency court. Support Systems: MOB reports AISSATOU is a support, FOB's family that including a grandfather and grandfather's girlfriend, and an aunt. MOB identifies counseling as an additional support. Depression/Shaken Baby/Safe Sleeping: Educated to safe sleeping and shaken baby prevention. Educated to depression and anxiety, risk factors present, and importance of seeking out help and support. Also broached that father's can be at risk as well. ASSESSMENT: Met with MOB and FOB in room, introducing to self and social work role. Both cooperative and willing to talk to this mortgage loan underwriter. Observed MOB to be fidgety in bed, making noises when shifting in bed and endorsing that feeling uncomfortable. FOB's motor activity calm. FOB attentive to baby during social work visit, holding baby, gazing/talking to/kissing baby. Noted that baby calm when FOB holding, but when FOB placed baby back into crib, this mortgage loan underwriter noted obvious tremors in the baby's lower extremities and then in the upper extremities. Baby started to fuss and baby was picked back up. FOB did give MOB the baby at one point, and MOB held baby, but shifted baby around. Baby fussier being shifted around, and MOB made comment that FOB does well with the baby. MOB did attempt to feed baby, and was appropriate in how handled this, though not appearing assertive, mostly using bottle to soothe the baby until baby fell back asleep. MOB and FOB report to have needed supplies for the baby and able to get formula if needed. MOB reports hope to provide breast milk to baby as well. During private conversation with the MOB, this mortgage loan underwriter addressed substance use and depression. MOB reports her counselor does address mental health concerns as well. MOB reports would consider antidepressants, but not at point of making a decision regarding this form of treatment. Encouraged MOB to talk to OBGYN about whether this would be an appropriate option at this time. Regarding substance use, MOB reports the FOB was not initially aware of MOB's relapse on heroin, but that FOB is aware now. Talked with MOB about need to call report to children services related to substance exposed and baby's positive drugs screen at delivery. MOB responded that the plan with children services is for baby to go with the FOB if needed. Note, this mortgage loan underwriter was informed by nursing staff that there was concern about the FOB's demeanor at time of delivery, possibly being under the influence. Safe Plan of Care for infant related to substance use: Continue MAT and outpatient counseling. Will need to also address with MOB importance of abstaining from illicit substances if choosing to breast feed baby after discharge. PLAN: Social work to follow and assist as needs arise. Plan to call [facility]. Follow up with family for home going resource information. -RONNI Redd, KELLI *Information documented in this assessment generated with [employer]*
[2020-09-11] MEDS: Etonogestrel 68 MG IMPLANT SQ (12:17)
[2020-09-11 12:22] VITALS: BP 142/64; PULSE 61; RESP 18; TEMP 36.4; O2SAT 98
--- NOTE | 2020-09-11 12:31 | PCM.OPRPT ---
Problem List (1) Active labor Status: Acute Report of Operation Date of Procedure: 09/11/20 Pre-Operative Diagnosis: Desire for nexplanon Post-Operative Diagnosis: Same Surgery/Procedure Performed:: Nexplanon insertion heavy equipment sales manager: None Type of Anesthesia:: Local Special Medications: 1% lidocaine Estimated Blood Loss (mL): 1ml Description of Procedure: Correct site identified. Area cleansed with Betadine solution. Area instilled with 3 cc of 1% lidocaine without epinephrine. Area-cleansed with Betadine solution. Nexplanon noah was then inserted using the insertion device. The noah was noted to have left the hardness tester. Correct placement was confirmed. Patient tolerated the procedure well. Grafts/Implants Used: Nexplanon Lot #[id number], Exp 08/17/22 - Complications None - Admit VTE Documentation VTE Present on Admission: No VTE Mechan Device Prophylaxis: SCD's VTE Pharm Prophylaxis ordered?: No Multi Select Codes - Urinary/Genital Urinary/Genital CPT Codes: Other Procedure See Report - Nexplanon insertion
[2020-09-11 15:48] VITALS: BP 131/81; PULSE 55; RESP 16; O2SAT 98
[2020-09-11] MEDS: Buprenorphine HCl 2 MG TAB.SUBL 12 MG SL (15:55)
--- NOTE | 2020-09-11 16:00 | CASEMGMT ---
Social Work Labor and Delivery Unit Called [facility] ([facility]) and spoke with Toyin Taylor in the intake department ([phone], extension [phone]). Referral due to concerns regarding substance exposed , positive toxicology at delivery, and current open case with [facility] for older children. Brief maternal and infant histories provided. Referral to be screened in for investigation. In response to referral, this teletypewriter operator informed that Yoni Gore (extension [phone]) will be to hospital to see mother of baby (MOB) and father of baby (FOB) today. Met with MOB and FOB to update to impending [facility] visit. MOB holding baby. MOB voiced understanding and asked FOB if okay with this information. FOB on phone, nodded head yes that okay visit with [facility] with the FOB. Yoni Gore to hospital to meet with parents. Spoke with Yoni after meeting with parents. Update received. Ongoing worker, Patricia Schuler, will be working on a plan for baby's disposition. Plan: Social work to continue to follow during baby's extended stay for MIKAL monitoring. Anticipate MOB to discharge as a patient prior to the bab. Continued collaboration with [facility] on disposition for baby. -AGATHA Redd, BUS DRIVER
[2020-09-11 20:24] VITALS: BP 130/77; PULSE 54; RESP 18; TEMP 36.8
[2020-09-12 01:55] VITALS: BP 121/71; PULSE 54; RESP 16; TEMP 36.8
[2020-09-12 03:58] VITALS: BP 132/75; PULSE 48; RESP 16; TEMP 36.7
[2020-09-12] MEDS: Naproxen 250 MG Tablet 500 MG PO ×2 (06:31→16:37)
--- NOTE | 2020-09-12 09:04 | PCM.PN.OB ---
Patient Problems: Active and Suspected Problems Active labor (Acute) Subjective: Patient doing well without complaints. Tolerating PO. Ambulating and voiding without difficulty. Bottle feeding well. Denies chest pain, shortness of breath, calf pain/swelling, fevers, chills, lightheadedness. - Physical Exam Vitals/I&O's: Vital Signs Temp Pulse Resp BP Pulse Ox 98.0 F 48 L 16 132/75 H 98 09/12/20 03:58 09/12/20 03:58 09/12/20 03:58 09/12/20 03:58 09/11/20 15:48 Oxygen Delivery Method Room Air Weight: 184 lb Body Mass Index (BMI) 28.8 Intake and Output for Last 24 Hours 09/10/20 09/11/20 09/12/20 23:59 23:59 23:59 Output Total 550 / 550 Balance -550 / -550 General: Alert, Oriented x3, Cooperative, No apparent distress, Well developed, Well nourished HEENT: Atraumatic, PERRLA, EOMI, Normocephalic Neck: Supple, No JVD Lungs: Normal air movement Cardiovascular: Regular rate Abdomen: Soft, Non Tender, Non-Distended, - - fundus firm Extremities: No edema, No Calf Tenderness Neurological: Cranial nerves II-XII grossly intact, Neuro grossly intact Psych/Mental Status: Normal Affect, Appropriate Microbiology Past 72 Hours 09/10/20 17:50 Mucosa - Nose SARS-CoV-2 Antigen (Rapid) - Final Current Medications Acetaminophen (Acetaminophen 500 Mg Tablet) 1,000 mg PO Q8H PRN PRN PRN Reason: Pain Score 1-3 Last Admin: 09/11/20 21:58 Dose: 1,000 mg Documented by: Bisacodyl (Bisacodyl 10 Mg Suppository) 10 mg RECTAL UD PRN PRN Reason: If no BM Buprenorphine HCl (Buprenorphine Hcl 8 Mg Tab.Subl) 8 mg SL BREAKFAST SWATI Buprenorphine HCl (Buprenorphine Hcl 2 Mg Tab.Subl) 12 mg SL 1500 SWATI Dibucaine (Dibucaine 30 Gm Tube) 1 applic TOPICAL TID PRN PRN; Protocol PRN Reason: Discomfort Hydrocortisone (Hydrocortisone 2.5% Crm) 1 applic TOPICAL TID PRN PRN; Protocol PRN Reason: Discomfort Methylergonovine Maleate (Methylergonovine 0.2 Mg/Ml Ampul) 0.2 mg IM X1 PRN PRN Reason: Excess bleeding/uterine atony Naproxen (Naproxen 250 Mg Tablet) 500 mg PO Q8H PRN PRN PRN Reason: Pain Score 1-3 Last Admin: 09/12/20 06:31 Dose: 500 mg Documented by: Ondansetron HCl (Ondansetron 4 Mg/2 Ml Vial) 4 mg IV Q4H PRN PRN PRN Reason: Nausea Senna/Docusate Sodium (Senna/Docusate Sodium 1 Tablet) 1 - 2 tablet PO DAILY PRN PRN PRN Reason: Constipation Simethicone (Simethicone 80 Mg Tablet) 80 mg PO PCHS PRN PRN Reason: Indigestion/Stomach pain Sodium Chloride (0.9% Saline Lock 10 Ml Syringe) 5 - 15 ml IV UD PRN PRN Reason: SALINE FLUSH Medical Necessity - Tobacco Use Smoking Status: Current every day smoker Assessment/Plan All Active Problems Oligohydramnios (Acute) Active labor (Acute) s/p PPD # 2 1. routine post delivery care 2. bottle feeding- support given 3. rh positive 4. rubella immune 5. Nexplanon placed yesterday for control
[2020-09-12] MEDS: BUPRENORPHINE HCL 8 MG TAB.SUBL SL (09:06)
[2020-09-12 09:09] VITALS: BP 140/79; PULSE 43; RESP 16; TEMP 36.4; O2SAT 97
[2020-09-12] MEDS: Acetaminophen 500 MG Tablet 1000 MG PO (09:20)
[2020-09-12] MEDS: Buprenorphine HCl 2 MG TAB.SUBL 12 MG SL (13:13)
[2020-09-12 13:16] VITALS: BP 134/74; PULSE 61; RESP 16; TEMP 37.1; O2SAT 96
== END 2020-09-12 18:27 | disposition home or self-care (01) | DRG 560 ==
LOC: ED 16:30 → WP 16:43
PROVIDERS: Admitting Provider Obstetrics & Gynecology; Emergency Provider Emergency Medicine; Visit Provider Obstetrics & Gynecology
DX: O62.3 Precipitate labor (principal); Z37.0 Single live birth; O99.334 Smoking (tobacco) complicating childbirth; Z3A.39 39 weeks gestation of pregnancy; F17.200 Nicotine dependence, unspecified, uncomplicated; O69.81X0 Labor and delivery complicated by cord around neck, without compression, not applicable or unspecified; Z30.017 Encounter for initial prescription of implantable subdermal contraceptive
CPT/HCPCS: 80307; 85025; 86850; 86900; 86901; 87426; 99283

== ENCOUNTER 2020-12-02 16:33 | Emergency (ER) | payer MEDICAID, SELFPAY ==
[2020-09-10 16:55] VITALS: BMI 28.8
[2020-12-02 16:35] VITALS: BP 142/97; PULSE 99; RESP 16; TEMP 35.8; O2SAT 95; BMI 24.4
--- NOTE | 2020-12-02 16:56 | EX.ED.SAOD ---
HPI History of Present Illness Chief Complaint: Substance Abuse Informant: patient Onset/Context/Timing Onset: Today Context: Gradual Onset Timing: Continuous Quality: Anxious, sore all over, shaky Location: All over Current Severity: Moderate Maximum Severity: Moderate Worsened by: Not using opiates Relieved by: Nothing Associated Symptoms Associated Symptoms: diarrhea* (and nausea, shaky/anxious, myalgias) Narrative Narrative: Patient has been addicted to snorting heroin and other opiates, she does not inject anything, and has been prescribed Subutex which she has also been taking, but inconsistently. She sees Dr. Love at [place], she was advised to come here for inpatient detox, she last used yesterday but she has not had any Suboxone and the last 3 days. She is having withdrawal symptoms today. She has been advised that technically she did not relapse she has continued use disorder. She is hoping to get through the withdrawal. And off of opiates that then she can be on Vivitrol injections. [facility] Medical History Anxiety and depression Substance abuse Home Medications acyclovir 1 tab PO BID 04/05/18 [History Last Taken 09/09/20 unsure] ferrous sulfate [Slow Fe] 142 mg PO DAILY 04/05/18 [History Last Taken 09/09/20] [id number] [Prenatabs FA] 1 tab PO DAILY 04/05/18 [History Last Taken 09/09/20] buprenorphine-naloxone 20 mg SL DAILY 09/10/20 [History Last Taken 09/10/20 12:00] naproxen 250 - 500 mg PO Q8H PRN PRN #30 tab 09/12/20 [Rx Last Taken Unknown] Allergy/AdvReac Type Severity Reaction Status Date / Time No Known Allergies Allergy Verified 12/15/16 00:37 Social History (Updated 12/02/20 @ 17:[address] Paramjit Bell MD) Smoking Status: Current every day smoker substance use type: heroin and opiates ROS ROS ED Constitutional Constitutional ED: Reports malaise and poor appetite; Denies chills or fever(s) Eyes Eyes: Denies change in vision or diplopia ENT ENT ED: Denies rhinorrhea or sore throat Cardiovascular Cardiovascular: Denies chest pain or palpitations Respiratory/Chest Respiratory/Chest: Denies cough or dyspnea Gastrointestinal Gastrointestinal: Reports abdominal pain, diarrhea and nausea; Denies melena or vomiting Genitourinary Genitourinary ED: Denies dysuria or hematuria Musculoskeletal Musculoskeletal: Reports myalgias; Denies back pain or neck pain Integumentary Denies abscess or rash Neurologic Neurologic: Denies headache(s), paresthesias or weakness Psychiatric Psychiatric: Reports anxiety; Denies suicidal thoughts EXAM Physical Exam Const Vital Signs: 12/02/20 16:35 12/02/20 17:46 12/02/20 18:20 Temperature 96.5 F L Temperature Source Temporal Pulse Rate 99 76 Respiratory Rate 16 Blood Pressure 142/97 H 127/92 H 135/92 H Blood Pressure Mean 112 103 106 Pulse Ox 95 100 98 Oxygen Delivery Method Room Air Room Air Room Air 12/02/20 19:08 Temperature Temperature Source Pulse Rate Respiratory Rate Blood Pressure 126/88 H Blood Pressure Mean 100 Pulse Ox Oxygen Delivery Method Positive well nourished and well developed General Appearance ED: well developed and NAD HEENT Reports moist mucous membranes normocephalic and atraumatic Eyes PERRL and EOMs intact bilaterally Neck full ROM and supple Resp normal respiratory effort and clear to auscultation bilaterally Cardio regular rate, regular rhythm and no murmurs Rate: Negative for tachycardic GI non-tender and non-distended Auscultation: normoactive bowel sounds Palpation: soft Back/Spine no CVA tenderness General Back: other FROM Extremity normal to inspection General Extremety ED: Negative for edema, pulses abnormal or tenderness General Extremity: Negative for edema or pulses abnormal Neuro oriented x3, CN's II-XII intact bilaterally and no sensory deficits noted Sensorium / Orientation: awake and alert Gait (Neuro): normal gait Motor Exam: strength 5/5 throughout Psych mental status grossly normal and thought process normal Skin no rashes or lesions noted and no wounds MDM MDM MDM Narrative Medical decision making narrative: Patient was given Zofran and tramadol for her withdrawal symptoms. She is medically cleared for detox admission, discussed with hospitalist. Lab Data Attestation: I reviewed the patient's lab results. Labs: Laboratory Results - last 24 hr 12/02/20 12/02/20 12/02/20 17:10 17:10 17:10 WBC 6.9 RBC 4.66 Hgb 13.5 Hct 41.6 MCV 89.3 MCH 29.0 MCHC 32.5 RDW Std Deviation 49.1 H RDW Coeff of Kierra 15.0 H Plt Count 376 MPV 9.3 Immature Gran % (Auto) 0.300 Neut % (Auto) 54.0 Lymph % (Auto) 35.0 [place] % (Auto) 10.2 H Eos % (Auto) 0.1 Baso % (Auto) 0.4 Absolute Neuts (auto) 3.7 Absolute Lymphs (auto) 2.40 Nucleated RBC % 0 Sodium 137 Potassium 3.9 Chloride 105 Carbon Dioxide 24.0 Anion Gap 8 BUN 21 H Creatinine 0.95 Estim Creat Clear Calc 84.97 Est GFR (MDRD) Af Amer 89 Est GFR (MDRD) Non-Af 74 BUN/Creatinine Ratio 22.1 H Glucose 92 Calcium 9.9 Total Bilirubin 0.50 AST 9 L ALT 12 L Alkaline Phosphatase 70 Total Protein 9.0 H Albumin 4.6 Globulin 4.4 H Albumin/Globulin Ratio 1.0 Serum , Qual Ur Drug Screen Comment Ethyl Alcohol < 3.0 12/02/20 12/02/20 17:10 19:00 WBC RBC Hgb Hct MCV MCH MCHC RDW Std Deviation RDW Coeff of Kierra Plt Count MPV Immature Gran % (Auto) Neut % (Auto) Lymph % (Auto) [place] % (Auto) Eos % (Auto) Baso % (Auto) Absolute Neuts (auto) Absolute Lymphs (auto) Nucleated RBC % Sodium Potassium Chloride Carbon Dioxide Anion Gap BUN Creatinine Estim Creat Clear Calc Est GFR (MDRD) Af Amer Est GFR (MDRD) Non-Af BUN/Creatinine Ratio Glucose Calcium Total Bilirubin AST ALT Alkaline Phosphatase Total Protein Albumin Globulin Albumin/Globulin Ratio Serum , Qual NEGATIVE Ur Drug Screen Comment Ethyl Alcohol Discharge Plan Dx/Rx/DC Orders Clinical Impression: Opiate dependence, Opiate withdrawal Disposition Disposition: Acute Care Hospital [facility]
[2020-12-02] MEDS: Ondansetron ODT 4 MG Tablet 8 MG PO (17:03)
[2020-12-02] MEDS: traMADol 50 MG Tablet 100 MG PO (17:04)
[2020-12-02 17:22] LABS: Absolute Neutrophil Count 3.7 X10^3/uL (2.0-7.7); Basophil# 0.03 X10^3/uL; Basophil% 0.4 % (0-1); Eosinophil# 0.01 X10^3/uL; Eosinophils% 0.1 % (0-5); Hematocrit 41.6 % (37-47); Hemoglobin 13.5 g/dL (12.0-15.0); Mean Corp Hgb Conc 32.5 g/dL (32-36); Mean Corpuscular Volume 89.3 fL (81-99); Mean Platelet Vol. 9.3 fl (6.2-12.0); Monocyte% 10.2 % (0-10); NRBC Flagged by Analyzer 0 % (0-5); Neutrophil # 3.69 X10^3/uL (2.7-7.7); Platelet Count 376 K/mm3 (150-450); RBC Distribution Width SD 49.1 fl (35.1-43.9); Red Blood Count 4.66 M/mm3 (4.2-5.4); White Blood Count 6.9 K/mm3 (4.4-11.0)
[2020-12-02 17:35] LABS: AST(SGOT) 9 U/L (15-37); Alanine Aminotransfer ALT/SGPT 12 U/L (13-56); Albumin, Serum 4.6 g/dL (3.2-5.0); Alkaline Phosphatase 70 U/L (45-117); Anion Gap 8 (5-15); BUN 21 mg/dL (7-18); BUN/Creat Ratio 22.1 RATIO (10-20); Calcium,Total 9.9 mg/dL (8.5-10.1); Chloride 105 mmol/L (98-107); Creatinine, Serum 0.95 mg/dL (0.55-1.02); EST Glomerular Filtration Rate 74 mL/min (>60); Est Glom Filt Rate - Afr Amer 89 mL/min (>60); Estimated Creatinine Clearance 84.97 ml/min; Globulin 4.4 g/dL (2.2-4.2); Glucose 92 mg/dL (74-106); Potassium 3.9 mmol/L (3.5-5.1); Sodium Level 137 mmol/L (136-145)
[2020-12-02 17:46] VITALS: BP 127/92; PULSE 76; O2SAT 100
[2020-12-02 18:20] VITALS: BP 135/92; O2SAT 98
[2020-12-02 18:26] LABS: Alcohol, Blood (Medical)-Serum < 3.0 mg/dL; Internal QC Validated? YES +Cl - CLEAR BKGD; Pregnancy, Serum, hCG Quali. NEGATIVE Negative
[2020-12-02 19:08] VITALS: BP 126/88
--- NOTE | 2020-12-02 19:41 | HP.PCM.HOS_ITS ---
HPI - General General Chief Complaint: Desire for detoxification. HPI Narrative JENNIFER MARLOW, is a 30 F with a significant history of depression and anxiety; tobacco abuse and opioid abuse who presents to the emergency department with help with detoxification. Altogether patient has been using drugs for the past 9 to 10 years she first started with p.o. opioids. In the past 6 to 7 years she has been using heroin on and off. She snorts the heroin. Previously she used to use high dose of heroin but because she is unemployed now she is unable to afford much of the heroin. Presently uses about half a gram to a gram daily. Also she is on Subutex prescribed by a provider in [place]. She reported that a day before presentation she had insomnia; diarrhea; vomiting; diaphoresis; chills; muscle aches and some confusion that she attributes to insomnia. She subsequently use heroin. Last time she use Subutex was a day or 2 days before presentation. Of note patient gave in August 2020 of this year and then developed depression and anxiety as above and for which she is prescribed Zoloft by her PCP.. [facility] Medical History (Updated 12/02/20 @ 19:[address] Surinder Childers MD) Anxiety and depression Oligohydramnios Opiate withdrawal Smoker Substance abuse Home Medications acyclovir 1 tab PO BID 04/05/18 [History Last Taken 09/09/20 unsure] ferrous sulfate [Slow Fe] 142 mg PO DAILY 04/05/18 [History Last Taken 09/09/20] [id number] [Prenatabs FA] 1 tab PO DAILY 04/05/18 [History Last Taken 09/09/20] buprenorphine-naloxone 20 mg SL DAILY 09/10/20 [History Last Taken 09/10/20 12:00] naproxen 250 - 500 mg PO Q8H PRN PRN #30 tab 09/12/20 [Rx Last Taken Unknown] Allergy/AdvReac Type Severity Reaction Status Date / Time No Known Allergies Allergy Verified 12/15/16 00:37 Family History Mother Cancer Father Cancer no surgical history Social History Smoking Status: Current every day smoker Tobacco: How many years used: 12 substance use type: heroin and opiates ROS ROS Narrative 12 point review of system is negative except as stated in the HPI. Vital Signs Vital Signs Vital Signs: 12/02/20 16:35 12/02/20 17:46 12/02/20 18:20 Temperature 96.5 F L Temperature Source Temporal Pulse Rate 99 76 Respiratory Rate 16 Blood Pressure 142/97 H 127/92 H 135/92 H Blood Pressure Mean 112 103 106 Pulse Ox 95 100 98 Oxygen Delivery Method Room Air Room Air Room Air 12/02/20 19:08 Temperature Temperature Source Pulse Rate Respiratory Rate Blood Pressure 126/88 H Blood Pressure Mean 100 Pulse Ox Oxygen Delivery Method Physical Exam Narrative Alert and oriented x3 Nontraumatic; normocephalic Lung clear to auscultate Heart sounds S1-S2. No murmur, gallop or rubs. Abdomen bowel sounds present soft, nontender nondistended Extremity without edema cyanosis or clubbing. Lab / Micro Data Result Diagrams: 12/02/20 17:10 12/02/20 17:10 Labs: Laboratory Results - last 24 hr 12/02/20 12/02/20 12/02/20 17:10 17:10 17:10 WBC 6.9 RBC 4.66 Hgb 13.5 Hct 41.6 MCV 89.3 MCH 29.0 MCHC 32.5 RDW Std Deviation 49.1 H RDW Coeff of Kierra 15.0 H Plt Count 376 MPV 9.3 Immature Gran % (Auto) 0.300 Neut % (Auto) 54.0 Lymph % (Auto) 35.0 Nelson % (Auto) 10.2 H Eos % (Auto) 0.1 Baso % (Auto) 0.4 Absolute Neuts (auto) 3.7 Absolute Lymphs (auto) 2.40 Nucleated RBC % 0 Sodium 137 Potassium 3.9 Chloride 105 Carbon Dioxide 24.0 Anion Gap 8 BUN 21 H Creatinine 0.95 Estim Creat Clear Calc 84.97 Est GFR (MDRD) Af Amer 89 Est GFR (MDRD) Non-Af 74 BUN/Creatinine Ratio 22.1 H Glucose 92 Calcium 9.9 Total Bilirubin 0.50 AST 9 L ALT 12 L Alkaline Phosphatase 70 Total Protein 9.0 H Albumin 4.6 Globulin 4.4 H Albumin/Globulin Ratio 1.0 Serum , Qual Ur Drug Screen Comment Ethyl Alcohol < 3.0 12/02/20 12/02/20 17:10 19:00 WBC RBC Hgb Hct MCV MCH MCHC RDW Std Deviation RDW Coeff of Kierra Plt Count MPV Immature Gran % (Auto) Neut % (Auto) Lymph % (Auto) Nelson % (Auto) Eos % (Auto) Baso % (Auto) Absolute Neuts (auto) Absolute Lymphs (auto) Nucleated RBC % Sodium Potassium Chloride Carbon Dioxide Anion Gap BUN Creatinine Estim Creat Clear Calc Est GFR (MDRD) Af Amer Est GFR (MDRD) Non-Af BUN/Creatinine Ratio Glucose Calcium Total Bilirubin AST ALT Alkaline Phosphatase Total Protein Albumin Globulin Albumin/Globulin Ratio Serum , Qual NEGATIVE Ur Drug Screen Comment Ethyl Alcohol Assessment & Plan Assessment/Plan (1) Desire for detoxification: (2) Opiate dependence: QUALIFIERS: Substance use status: uncomplicated Qualified Code(s): F11.20 - Opioid dependence, uncomplicated (3) Tobacco abuse: PLAN: Opiate dependence and desire for detoxification Patient be started on Subutex and other adjunctive medications: Gabapentin as needed; dicyclomine as needed; Vistaril as needed; methocarbamol as needed; clonidine as needed; Imodium as needed; trazodone as needed and Zofran as needed. Monitor COWS and CINA score Tobacco abuse Counseled Nicotine gum as needed prescribed. DVT prophylaxis Low risk Encourage to ambulate
[2020-12-02 19:47] LABS: Amphetamine Urine VISTA POSITIVE (<1000 ng/mL); Barbiturate Urine VISTA NEGATIVE (< 200 ng/mL); Benzodiazepine Urine VISTA NEGATIVE (< 200 ng/mL); Cocaine Urine VISTA NEGATIVE (< 300 ng/mL); Ecstacy Urine VISTA POSITIVE (< 500 ng/mL); Methadone Urine VISTA NEGATIVE (< 300 ng/mL); PCP Urine VISTA NEGATIVE (< 25 ng/mL); THC Urine VISTA NEGATIVE (< 50 ng/mL); Vista UDS pH Range 6
--- NOTE | 2020-12-02 20:00 | CM.ED ---
SOCIAL WORK Referral source: Nursing Reason for Consult: Substance Abuse-requested detox from opiates now leaving due to concerns for children. Met with patient in room. Introduced role and reason for referral. Patient stating I came in on a whim. I didn't have things figured out with my kids. Patient states last use was yesterday. Patient reports to have custody of children and are placed with significant other. Patient reports open case with [facility]. Call to on-call [facility] worker, Nakia Browning. Discussed concerns for children due to patient's drug use. Nakia to update on-call carpenter supervisor wooden ship and confirm safety of children. Staff updated on the above and patient's request to leave. Ana Moore, EMERY WHEEL MOLDER, CRYPTOLOGIC TECHNICIAN
[2020-12-02 21:00] VITALS: RESP 14
== END 2020-12-02 21:00 | disposition home or self-care (01) ==
LOC: ED 17:29 → MS3 20:52
PROVIDERS: Emergency Provider Emergency Medicine; PCP Physician Assistant
DX: F11.23 Opioid dependence with withdrawal (principal); F41.9 Anxiety disorder, unspecified; F32.9 Major depressive disorder, single episode, unspecified; F17.200 Nicotine dependence, unspecified, uncomplicated
CPT/HCPCS: 80053; 80307; 82077; 84703; 85025; 99283

== ENCOUNTER → 2024-02-15 | Outpatient (CLI) | payer MEDICAID, SELFPAY ==
[2024-02-15 20:40] LABS: HIV - WCH Non-Reactive (Nonreactive); Hepatitis B Surface Antibody Reactive; Hepatitis B Surface Antigen Non-Reactive (Nonreactive); Hepatitis C Antibody Preliminary Reactive (Nonreactive); Syphilis Antibodies Non-reactive
[2024-02-17 06:08] LABS: Hepatitis B Core Ab Total Negative (Negative)
[2024-02-17 19:07] LABS: HCV Quant. RNA PCR 443000 IU/mL (.); HCV log 10 5.646 (.)
[2024-02-20 12:09] LABS: HPV APTIMA, High Risk Negative (Negative)
[2024-02-20 16:27] LABS: HPV Reflexed? YES, CHARGE PATIENT
== END | disposition home or self-care (01) ==
PROVIDERS: Visit Provider Nurse Practitioner Family
DX: Z01.419 Encounter for gynecological examination (general) (routine) without abnormal findings (principal); Z11.51 Encounter for screening for human papillomavirus (HPV); Z11.3 Encounter for screening for infections with a predominantly sexual mode of transmission
CPT/HCPCS: 86703; 86704; 86706; 86780; 86803; 87340; 87522; 87624; 88175; G0145

== ENCOUNTER 2024-07-02 20:36 | Emergency (ER) | payer MEDICAID, SELFPAY ==
[2024-07-02 20:36] VITALS: BP 148/107; PULSE 106; RESP 19; TEMP 36.6; O2SAT 97; BMI 24.0
--- NOTE | 2024-07-02 21:02 | EDS_ITS ---
HPI History of Present Illness Chief Complaint: Wound Detail of Chief Complaint: Redness to face. Informant: patient Onset/Context/Timing Onset: Days (2 days prior to arrival) Context: Sudden Onset Timing: Continuous Quality: Redness, bleeding due to her scratching at and itching Location: Chin region and anterior neck bilaterally Current Severity: Moderate Maximum Severity: Moderate Worsened by: Nothing specific Relieved by: Nothing Associated Symptoms Associated Symptoms: There is itching and also inflammation of the skin Narrative Narrative: Patient is a 33-year-old female. She has history of opiate dependency and apparently used meth recently. She denies signs or symptoms of or concern for . Patient denies fever, chills night sweats. Patient denies any lesions in her mouth. Patient denies history of cold sores. Patient denies change in voice or trouble swallowing. Patient denies history of heart murmur, mitral valve prolapse, SBE. Prior similar symptoms: No Recent Illness/Hospitalization: No PFSH PFSH Medical History Depression Anxiety Hepatitis Asthma Seizures Oligohydramnios Smoker Opiate withdrawal Substance abuse Anxiety and depression Home Medications ?Medication ?Instructions ?Recorded ?Last Taken ?Type doxycycline monohydrate 100 mg 100 mg PO BID #14 CAPSULES 07/02/24 Unknown Rx capsule Allergy/AdvReac Type Severity Reaction Status Date / Time No Known Allergies Allergy Verified 07/02/24 20:37 Family History Mother Cancer Father Cancer Social History Smoking Status: Current every day smoker tobacco type: cigarettes Tobacco: How many years used: 12 substance use type: heroin and opiates ROS ROS ED Constitutional Constitutional ED: Denies chills, fever(s), subjective or sweats Eyes Eyes: Denies blurry vision, change in vision or diplopia ENT ENT ED: Denies ear pain or rhinorrhea Cardiovascular Cardiovascular: Denies chest pain or palpitations Respiratory/Chest Respiratory/Chest: Denies cough, dyspnea or dyspnea on exertion Gastrointestinal Gastrointestinal: Denies nausea or vomiting Integumentary Reports rash Neurologic Neurologic: Denies headache(s) Hematologic/Lymphatic Hematologic/Lymphatic: Denies easy bleeding or easy bruising EXAM Physical Exam Const Vital Signs: 07/02/24 20:36 Temperature 97.9 F Temperature Source Oral Pulse Rate 106 H Respiratory Rate 19 H Blood Pressure 148/107 H Blood Pressure Mean 120 Pulse Ox 97 Oxygen Delivery Method Room Air Positive well nourished and well developed General Appearance ED: well developed and NAD; Negative for pallor HEENT Reports moist mucous membranes HEENT Narrative: Head is atraumatic and normocephalic. Ears normal. Nares patent. No oral lesions. Patient has erythema with induration over the right and left mandibular region and anterior neck. On the left side there is noted to be inflammatory changes consistent with a contact dermatitis. She has an abrasion noted right side of her chin. There is some bleeding noted. There is no purulent drainage. There is no fluctuance. She has shotty submental nodes noted. Trachea is midline. There is no inspiratory stridor. Eyes PERRL and EOMs intact bilaterally General Eye ED: Negative for pale conjunctiva or scleral icterus Neck no lymphadenopathy, supple and no JVD Neck Narrative: Documented under the HEENT portion of the medical record Resp normal respiratory effort and clear to auscultation bilaterally Cardio regular rhythm, S1 normal heart sound, S2 normal heart sound and no murmurs Rate: tachycardic Extremity normal to inspection Neuro oriented x3 and CN's II-XII intact bilaterally Sensorium / Orientation: alert Skin No no rashes or lesions noted, No no wounds and skin turgor normal General Skin Exam: elasticity normal; Negative for jaundice or pallor MDM MDM MDM Narrative Medical decision making narrative: Patient with cellulitis of the face and neck. She also has evidence of contact dermatitis. Since there is concern there is an infection she was not treated with topical or systemic steroids. She was placed on doxycycline. This will cover both streptococcal and staphylococcal organisms. She was given instructions how to care for this. She was told to put no lotions, cosmetics over the area. Since patient is afebrile has no systemic symptoms laboratory tests were not obtained. Discharge Plan Triage Chief Complaint: Wound ED Provider: Willi Willson Dx/Rx/DC Orders Clinical Impression: Cellulitis of face, Opiate dependence, Contact dermatitis Instructions: ED Cellulitis, ED Contact Dermatitis Prescriptions: New doxycycline monohydrate 100 mg capsule 100 mg PO BID Qty: 14 0RF Primary Care Provider: Care Physician,No Primary Referrals: Care Physician,No Primary [Primary Care Provider] - Doctor,Your [Non-Staff] - 3-5 Days Activity Restrictions/Additional Instructions: 1. Take antibiotics till gone 2. Do not apply any creams, lotions or cosmetic products over the area of redness 3. The name of your doctor is located on your insurance card issued to you by care source Print Language: Latvian Disposition Disposition: Home, Self Care
[2024-07-02] MEDS: Doxycycline 100 MG CAPSULE PO (21:10)
[2024-07-02 21:34] VITALS: BP 112/74; PULSE 80; RESP 16; TEMP 36.7; O2SAT 97
== END 2024-07-02 21:36 | disposition home or self-care (01) ==
LOC: ED 21:11
PROVIDERS: Emergency Provider Emergency Medicine; Visit Provider Emergency Medicine
DX: L03.211 Cellulitis of face (principal); F11.20 Opioid dependence, uncomplicated; L25.9 Unspecified contact dermatitis, unspecified cause
CPT/HCPCS: 99282